=== PATIENT | male | born 1970 | race Caucasian/White ===

== ENCOUNTER 2023-09-03 14:35 | Emergency (ER) | payer BC, SELFPAY ==
[2023-09-03 14:37] VITALS: BP 166/106
--- NOTE | 2023-09-03 15:34 | CON.MD ---
Consultation - Medical
-
see dictated not
pt seen in ER
had inj of trimix this morning at around 11:30
despite oral pseudophed- had persistent erection
under sterile conditions- both corporal bodies aspirated of approx 30cc total
1cc of phenyl mix put in each body
penis soft
observed with no recurrence
home with doxy and instructions to NOT use any ed meds
will f/u in 4 weeks
== END 2023-09-03 16:18 | disposition home or self-care (01) ==
LOC: EMR 14:35
PROVIDERS: EMERGENCY PHYSICIAN Specialist; FAMILY PHYSICIAN Internal Medicine
DX: N48.30 Priapism, unspecified (principal); N52.9 Male erectile dysfunction, unspecified; E11.9 Type 2 diabetes mellitus without complications
CPT/HCPCS: 99284; 54220

== ENCOUNTER 2023-10-29 12:44 | Emergency (ER) | payer BC, SELFPAY ==
[2023-10-29 12:52] VITALS: BP 134/95
--- NOTE | 2023-10-29 13:02 | ED.GENMED ---
History of Present Illness
General
Chief Complaint: Male Genito-Urinary Symptoms
Time Seen by Provider: 10/29/23 13:01
Travel History
Have you had any contact with someone who has COVID-19?: No
Do you have any symptoms of coronavirus? Fever > 100 degrees, chills, cough, shortness of breath, sore throat, loss of taste or smell, muscle aches, or headache?: No
History of Present Illness
History of Present Illness:
HPI: Patient presents due to concerns for priapism. He injected by bimix at 10 AM. He states it has been semirigid over the past 3 hours. He does not have nearly as much pain as he did the last time. He has tried Sudafed this morning.
EXAM:
GENERAL: Well appearing in no distress
HEENT: Moist oral mucosa
: There is semirigid erection with rather significant Peyronie's
ABDOMEN: Soft with no peritoneal signs, no tenderness
NEUROLOGIC: Excellent strength all extremities, no coordination deficits
PSYCHIATRIC: Appropriate mental status, normal insight and judgement
EXTREMITIES: Nontender, no edema, moves all extremities equally
SKIN: No rash, no lesions
TIME OF INITIAL ENCOUNTER: 1 PM
NUMBER AND COMPLEXITY OF PROBLEMS ADDRESSED AT THE ENCOUNTER
� Chronic conditions affecting care: Has had priapism in the past, erectile dysfunction, Peyronie's
� Acute Exacerbation and/or Progression of Chronic Illness: This is an acute but recurring problem
� Differential Diagnosis includes: Priapism
AMOUNT AND/OR COMPLEXITY OF DATA TO BE REVIEWED AND ANALYZED
� I performed an independent evaluation of and my interpretation is:
EKG:
CT:
X-rays:
Laboratory Studies:
Other:
� Review of other/old records: The patient had priapism
� Clinical information was obtained by an independent historian: I spoke Dr. Prince
� Prescriptions/Medications Considered but not given: Dr. Prince said that he was sending a prescription for doxycycline for the next few days
� Further testing considered but not performed: No other testing needed
RISK OF COMPLICATIONS AND/OR MORBIDITY OR MORTALITY OF PATIENT MANAGEMENT
� Social determinants of health affecting care: Lives at home
� Discussion with other providers: Discussed case with Dr. Prince at 1:15 PM�he is going to come over and aspirate.
� Escalation of care including admission/observation vs risk of discharge considered: Dr. Prince came into the ED and performed aspiration/injection. The initial presentation did not show a complete full erection and already was
semirigid on initial evaluation.
Past History
Past History
ED Past Medical History: Arrthythmia (taachycardia), Hypercholesterolemia, NIDDM and Other (Urinary tract infection with sepsis March 2022, Peyronie's disease, Nephroliothiasis)
ED Past Surgical History: None
Social History
Tobacco: Non-smoker
Alcohol: None
Drug: None
Personal:
Living: with family
Employment: Employed
Family History
Family History: Other (Reviewed and noncontributory)
Phy Exam
Physical Exam
Physical Exam:
See HPI
Course
Orders/Labs/Results
Orders:
Orders
10/29/23 13:01
Phenylephrine [Mt-Synephrine] 5 mg 0.9% Sodium Chloride 50 ml [Nss] 19.5 ml Syringe [Syringe Non-Pump] 0 ml INTRACAVER ONCE PRN
Vital Signs
Initial and Last Documented VS:
Initial Vital Signs
Temp Pulse Resp BP Pulse Ox
98.0 F 120 16 134/95 98
10/29/23 12:52 10/29/23 12:52 10/29/23 12:52 10/29/23 12:52 10/29/23 12:52
Last Documented Vital Signs
Temp Pulse Resp BP Pulse Ox
98.0 F 122 15 142/102 97
10/29/23 12:52 10/29/23 13:18 10/29/23 13:18 10/29/23 13:18 10/29/23 13:17
*Critical Care Note
Total Time (30-74mins, 75-104mins- exclusive of procedures): Not Applicable
ED Attending Note
-
Portions of this chart may have been created with voice recognition software.� Occasional wrong word or��sound alike� substitutions may have occurred due to the inherent limitations of voice recognition software.
Discharge Plan
Departure
Patient Disposition: Home (Routine Discharge)
Date of Disposition: 10/29/23
Time of Disposition: 13:55
Patient with high blood pressure during this ER visit?: Yes
Discharge Problem:
Priapism
Prescriptions:
No Action
rosuvastatin [Crestor] 5 mg Tablet
5 mg PO HS
Jardiance 25 mg Tablet
25 mg PO HS
Hold Instructions: recommend to hold until follow up with your primary care doctor
therapeutic multivitamin Tablet
1 tab PO HS
Janumet XR 50-1,000 mg Tablet, Er Multiphase 24 Hr
2 tab PO HS
tamsulosin 0.4 mg capsule
0.4 mg PO HS
polyethylene glycol 3350 17 gram Powder In Packet
17 g PO DAILY Qty: 0 0RF
Eliquis DVT-PE Treat 30D Start 5 mg (74 tabs) tablets,dose pack
See Rx Instructions .ROUTE .COMPLEX Qty: 74 0RF
Rx Instructions:
orally per package directions
Referrals:
López Prince Jr., MD [Active] -
Activity Restrictions/Additional Instructions:
Follow-up with Dr. Prince as needed.
Interventions
Interventions:
*Risk Screen - Suicide Last Done: 10/29/23 13:07
*General Assessment Last Done: 10/29/23 13:07
*Neglect/Abuse Screening Last Done: 10/29/23 13:07
*ED COVID-19 Vaccine History Last Done: 10/29/23 12:52
ED-Male Genitourinary Assessment Last Done: 10/29/23 13:08
Discharge Date and Time
Print Language: IRISH
[2023-10-29 13:07] VITALS: BMI 28.5
[2023-10-29 13:18] VITALS: BP 142/102
[2023-10-29 13:30] VITALS: BP 141/90
--- NOTE | 2023-10-29 13:54 | CON.MD ---
Consultation - Medical
-
see dictated note
pt injected with bimix this morning- has peristent erection
on exam- partial erection- rigid at base bilaterally
right corporal body aspirated and 1cc of standard phyenl mix injected with prompt and complete detum.
pt to ice today- call tomorrow with update
== END 2023-10-29 14:14 | disposition home or self-care (01) ==
LOC: EMR 12:44
PROVIDERS: EMERGENCY PHYSICIAN Emergency Medicine; FAMILY PHYSICIAN Internal Medicine
DX: N48.30 Priapism, unspecified (principal); E11.9 Type 2 diabetes mellitus without complications; E78.00 Pure hypercholesterolemia, unspecified; N52.9 Male erectile dysfunction, unspecified; Z79.899 Other long term (current) drug therapy; Z87.440 Personal history of urinary (tract) infections
CPT/HCPCS: 99283; 54220